=== PATIENT | female | born 1955 ===

== ENCOUNTER 2020-08-07 10:15 | Inpatient (IN) | payer OTHER ==
[~2020-08-07] VITALS: Ht 157.5 cm; Wt 86.2 kg
[2020-08-07] MEDS ORDERED: ZESTRIL10 M1 PO (12:26)
[2020-08-07] MEDS ORDERED: SIMVASTATIN10 MG PO (12:26)
[2020-08-07] MEDS ORDERED: ANTIVERT PO (12:26)
[2020-08-14] MEDS ORDERED: ALAWAY10 ML (10:56)
[2020-08-14] MEDS ORDERED: KETOROLAC TROMET5 M1 (10:56)
[2020-08-14] MEDS ORDERED: DRAMAMINE LESS25 MG PO (10:57)
== END 2020-08-16 20:12 | disposition home or self-care (01) | DRG 330 ==
LOC: SURH 08-14 09:59 → O/R 08-14 09:59 → SURH 08-14 10:15
PROVIDERS: ADMIT Colon & Rectal Surgery; ATTEND Colon & Rectal Surgery
PROC: 0DTP4ZZ Resection of Rectum, Percutaneous Endoscopic Approach (ICD-10-PCS; 2020-08-14)
PROC: 0DTN4ZZ Resection of Sigmoid Colon, Percutaneous Endoscopic Approach (ICD-10-PCS; principal; 2020-08-14 17:30)
DX: K57.32 Diverticulitis of large intestine without perforation or abscess without bleeding (principal); K92.1 Melena; N99.4 Postprocedural pelvic peritoneal adhesions; I10 Essential (primary) hypertension